=== PATIENT | male | born 1990 | race Caucasian/White ===

== ENCOUNTER 2020-03-27 13:32 | Emergency (ER) | payer OTHER ==
[~2020-03-27 13:32] MED LIST: BENTYL10 MG PO; NORCO 5-325 TA1 EACH PO; TRAZODONE 100M100 MG PO
[2020-03-27 14:18] LABS: BASOPHIL 0.5 % (0-2); EOSINOPHIL 0.8 % (0-5); HGB 14.9 g/dl (13.2-18.0); LYMPHOCYTE 15.3 % (15-48); MCH 30.8 pg (25.0-31.0); MCHC 34.7 g/dL (32.0-36.0); MCV 88.8 fL (78.0-100.0); MONOCYTE 5.5 % (0-12); MPV 10.8 fL (6.0-9.5); NEUTROPHIL 77.7 % (41-80); NRBC 0; PLT 216 K/uL (150-400); RBC 4.84 M/uL (4.70-6.00); RDW 11.4 % (11.5-14.0); WBC 6.6 K/uL (4.0-10.5)
[2020-03-27 14:27] LABS: BILIRUBIN NEGATIVE (NEGATIVE); BLOOD NEGATIVE Ery/uL (NEGATIVE); CLARITY CLEAR (CLEAR); COLOR YELLOW (YELLOW); GLUCOSE (U) NORMAL (NORMAL); LEUKOCYTES NEGATIVE Leu/uL (NEGATIVE); NITRITE NEGATIVE (NEGATIVE); PROTEIN NEGATIVE (NEGATIVE); SPECIFIC GRAVITY 1.015 (1.001-1.030); UROBILINOGEN 0.2 mg/dL (0.2-1.0); pH 6.5 (5.0-9.0)
[2020-03-27 14:51] LABS: ALBUMIN 4.2 g/dL (3.4-5.0); BILIRUBIN - TOTAL 0.4 mg/dL (0.2-1.0); BUN/CREAT RATIO (CALC) 10.4 RATIO; CREATININE 0.96 mg/dL (0.67-1.17); GLOBULIN (CALCULATION) 3.2 g/dL; POTASSIUM 3.8 mmol/L (3.5-5.1); TOTAL PROTEIN 7.4 g/dL (6.4-8.2)
[2020-03-27] MEDS ORDERED: PRILOSEC20 MG PO (16:01)
[2020-03-27] MEDS ORDERED: ANUCORT-HC25 MG PR (16:01)
== END 2020-03-27 16:30 | disposition home or self-care (01) ==
LOC: FER 13:32
PROVIDERS: Nurse Practitioner Family
DX: K92.1 Melena (principal); R11.0 Nausea; E07.9 Disorder of thyroid, unspecified; Z87.19 Personal history of other diseases of the digestive system; Z79.899 Other long term (current) drug therapy
CPT/HCPCS: 36415; 80053; 81003; 85025; J2405; J7030; Q9967

== ENCOUNTER 2020-05-12 01:52 | Emergency (ER) | payer OTHER ==
[~2020-05-12 01:52] MED LIST changes: +ANUCORT-HC25 MG PR; +PRILOSEC20 MG PO
[2020-05-12 04:54] LABS: BASOPHIL 0.6 % (0-2); EOSINOPHIL 1.5 % (0-5); HCT 42.6 % (42.0-52.0); HGB 14.3 g/dl (13.2-18.0); LYMPHOCYTE 29.1 % (15-48); MCH 30.8 pg (25.0-31.0); MCHC 33.6 g/dL (32.0-36.0); MCV 91.6 fL (78.0-100.0); MONOCYTE 9.5 % (0-12); NEUTROPHIL 59.1 % (41-80); NRBC 0; PLT 198 K/uL (150-400); RBC 4.65 M/uL (4.70-6.00); RDW 11.7 % (11.5-14.0); WBC 4.6 K/uL (4.0-10.5)
[2020-05-12 04:58] LABS: BILIRUBIN NEGATIVE (NEGATIVE); BLOOD NEGATIVE Ery/uL (NEGATIVE); CLARITY CLEAR (CLEAR); COLOR YELLOW (YELLOW); GLUCOSE (U) NORMAL (NORMAL); LEUKOCYTES NEGATIVE Leu/uL (NEGATIVE); NITRITE NEGATIVE (NEGATIVE); PROTEIN NEGATIVE (NEGATIVE); SPECIFIC GRAVITY >=1.030 (1.001-1.030); UROBILINOGEN 0.2 mg/dL (0.2-1.0); pH 5.5 (5.0-9.0)
[2020-05-12 05:16] LABS: BILIRUBIN - TOTAL 0.7 mg/dL (0.2-1.0); BUN/CREAT RATIO (CALC) 17.2 RATIO; CREATININE 0.93 mg/dL (0.67-1.17); GLOBULIN (CALCULATION) 3.1 g/dL; POTASSIUM 3.9 mmol/L (3.5-5.1); TOTAL PROTEIN 7.1 g/dL (6.4-8.2)
[2020-05-12] MEDS ORDERED: MIRALAX 238GM238 GM PO ×2 (06:04→06:05)
[2020-05-12] MEDS ORDERED: COLACE100 MG PO ×2 (06:04→06:05)
[2020-05-12] MEDS ORDERED: FLOMAX0.4 MG PO ×2 (06:04→06:05)
[2020-05-14 21:10] LABS: CHLAMYDIA TRACHOMATIS, NAA Negative (Negative); NEISSERIA GONORRHOEAE, NAA Negative (Negative)
== END 2020-05-13 01:20 | disposition home or self-care (01) ==
LOC: FER 01:52
PROVIDERS: Emergency Medicine Emergency Medical Services
DX: R10.32 Left lower quadrant pain (principal); R30.0 Dysuria; M54.9 Dorsalgia, unspecified; Z87.19 Personal history of other diseases of the digestive system; Z86.16 Personal history of COVID-19; Z87.39 Personal history of other diseases of the musculoskeletal system and connective tissue
CPT/HCPCS: 36415; 80053; 81003; 85025; 87088; 87491; 87591; J1885; J2405; J7030

== ENCOUNTER 2020-05-12 23:20 | Emergency (ER) | payer OTHER ==
[~2020-05-12 23:20] MED LIST changes: +COLACE100 MG PO; +FLOMAX0.4 MG PO; +MIRALAX 238GM238 GM PO
== END 2020-05-13 01:21 | disposition home or self-care (01) ==
LOC: FER 23:20
DX: K59.00 Constipation, unspecified (principal); Z87.19 Personal history of other diseases of the digestive system

== ENCOUNTER 2020-05-16 20:46 | Emergency (ER) | payer OTHER | END 2020-05-16 20:50 | disposition left against medical advice (07) | LOC: FER 20:46 | DX: R10.2 Pelvic and perineal pain (principal); N50.819 Testicular pain, unspecified; Z53.8 Procedure and treatment not carried out for other reasons ==